=== PATIENT | male | born 2000 | race Asian ===

== ENCOUNTER → 2020-06-14 | Outpatient (CLI) | payer SELFPAY | LOC: M LABSMTC 11:52 | PROVIDERS: ATTEND Pediatrics | DX: Z20.828 Contact with and (suspected) exposure to other viral communicable diseases (principal) ==

== ENCOUNTER → 2021-08-21 | Outpatient (REF) | payer OTHER | LOC: M LAB REF 14:00 | PROVIDERS: ATTEND Internal Medicine Infectious Disease | DX: Z11.52 Encounter for screening for COVID-19 (principal) ==